=== PATIENT | female | born 1950 | race Asian ===

== ENCOUNTER 2019-05-09 12:08 | Emergency (ER) | payer MEDICARE ==
--- NOTE | 2019-05-09 12:29 | ED Physician Documentation ---
History of Present Illness - Stated complaint Stated Complaint: FEM - Chief complaint Chief Complaint: General - Additonal information Additional information: This is a 68-year-old female who presents with feeling of pressure in her vagin a. She is primarily [place] speaking, history is obtained with use of a video senior biostatistician. Patient also speaks some German. Patient states that she has had some vaginal symptoms for the last 10 years, She feels that there is a balloon or something inside her vagina that causes some discomfort. She describes this as if there is a balloon and there is pressure is at the balloon is falling down and out. She states that she has had OB evaluation in the past which have been either unrevealing or revealed some redness and swelling of the cervix. She has been on antibiotics in the past and this has not provided much relief. She denies abdominal pain, denies pelvic or vaginal pain. She is not sexually active. Review of Systems Constitutional: denies: Fever Nose: denies: Rhinorrhea / runny nose Cardiac: denies: Chest pain / pressure Respiratory: denies: Cough GI: denies: Abdominal Pain : reports: Discharge. denies: Dysuria Musculoskeletal: denies: Extremity pain Neurologic: denies: Generalized weakness PD PAST MEDICAL HISTORY - Past Medical History : Other (urinary tract infection) - Past Surgical History Past Surgical History: No - Allergies Allergies/Adverse Reactions: Allergies Allergy/AdvReac Type Severity Reaction Status Date / Time No Known Drug Allergies Allergy Verified 05/09/19 12:58 - Living Situation Living Arrangement: reports: At home - Social History Does the pt smoke?: No PD ED PE NORMAL - Vitals Vital signs reviewed: Yes - General General: Alert and oriented X 3, No acute distress - HEENT HEENT: PERRL - Neck Neck: Supple, no meningeal sign - Cardiac Cardiac: RRR - Respiratory Respiratory: Clear bilaterally - Abdomen Abdomen: Normal bowel sounds, Soft, Non tender, Non distended - Female Female : Galvanizer Zinc present, Other (External genitalia unremarkable, on speculum exam there is anterior vaginal prolapse/cystocele. Cervix is unremarkable in appearance. No abnoraml discharge.) - Derm Derm: Warm and dry - Extremities Extremities: No deformity - Neuro Neuro: Alert and oriented X 3 - Psych Psych: Normal mood, Normal affect Results - Vitals Vitals: Vital Signs - 24 hr 05/09/19 05/09/19 12:15 15:18 Temperature 36.8 C Heart Rate 85 65 Respiratory 18 18 Rate Blood Pressure 160/122 H 110/74 O2 Saturation 98 98 Oxygen O2 Source Room air - Labs Labs: Laboratory Tests 05/09/19 12:42 Urine Color YELLOW Urine Clarity CLEAR Urine pH 6.0 Ur Specific [place] <=1.005 Urine Protein NEGATIVE Urine Glucose (UA) NEGATIVE Urine Ketones NEGATIVE Urine Occult Blood MODERATE H Urine Nitrite NEGATIVE Urine Bilirubin NEGATIVE Urine Urobilinogen 0.2 (NORMAL) Ur Leukocyte Esterase SMALL H Urine RBC 0-5 Urine WBC 0-3 Ur Squamous Epith Cells FEW Squamous Urine Bacteria Few Ur Microscopic Review INDICATED Urine Culture Comments INDICATED PD MEDICAL DECISION MAKING - ED course Complexity details: considered differential (UTI, BV, cystocele, STD, abscess, PID) ED course: Pt presents with symptoms of heaviness/pressure in her vagina that have been ongoing for years. She is not sexually active, has no itching, or abnormal discharge. Her abdomen is benign with no tenderness, I highly doubt acute abdominal or pelvic pathology. She has anterior wall vaginal prolapse on exam that explains her symptoms well. I discussed that she needs to follow with an OB to discuss treatment and further evaluation of this issue, contact info was provided. Her UA is negative. Return precautions discussed and patient was discharged home. Departure - Departure Disposition: 01 Home, Self Care Clinical Impression: Prolapse of anterior vaginal wall Condition: Good Instructions: Pelvic Organ Prolapse Follow-Up: Castro Cullen MD [Provider Admit Priv/Credential] - Within 1 week Comments: You were seen today for a feeling of pressure in the vagina. You appear to have Pelvic prolapse, which is likely causing your symptoms. Please follow-up with an CHAIN SAW OPERATOR provider for further evaluation. Return to emergency department if you have new or worsening symptoms. Discharge Date/Time: 05/09/19 15:18
[2019-05-09 12:50] LABS: BILIRUBIN,URINE NEGATIVE (NEGATIVE); GLUCOSE, URINE (UA) NEGATIVE (NEGATIVE); KETONES,URINE (UA) NEGATIVE (NEGATIVE); LEUKOCYTE ESTERASE, URINE SMALL (NEGATIVE); NITRITE,URINE NEGATIVE (NEGATIVE); OCCULT BLOOD,URINE MODERATE (NEGATIVE); PROTEIN,URINE NEGATIVE (NEGATIVE); UROBILINOGEN,URINE 0.2 (NORMAL) E.U./dL (NORMAL)
[2019-05-09 13:01] LABS: CLARITY,URINE CLEAR (CLEAR)
[2019-05-09 13:12] LABS: BACTERIA,URINE Few /HPF (None Seen); RBC,URINE 0-5 /HPF (0-5); SQUAMOUS EPITHELIAL CELL,UR FEW Squamous (<= Few)
[2019-05-09 15:19] VITALS: BP 110/74
== END 2019-05-09 15:18 | disposition home or self-care (01) ==
LOC: ED 12:08
DX: N81.10 Cystocele, unspecified (principal)
CPT/HCPCS: 81001; 81003; 87086; 99283; 99284

== ENCOUNTER 2019-06-01 09:54 | Outpatient (CLI) | payer MEDICARE, MEDICAID ==
--- NOTE | 2019-06-02 08:53 | Mammography Report ---
Reason: ROUTINE MAMMO Procedure Date: 06/01/2019 Accession Number: [id number] / [id number] Procedure: MELODY - Screening Mammo w/Boris CPT Code: FULL RESULT: EXAM: Screening Mammo w/Boris DATE: 06/01/2019 10:23 AM CLINICAL HISTORY: Screening encounter. Baseline examination. TECHNIQUE: (B) - Bilateral CC and MLO views were obtained. COMPARISON: None PARENCHYMAL PATTERN: (D) - The breast(s) demonstrate(s) heterogeneously dense fibroglandular parenchyma. FINDINGS: Typically benign vascular calcifications are noted. There are no suspicious masses, calcifications, or areas of distortion. IMPRESSION: Benign findings. BI-RADS category 2. RECOMMENDATION: (ANNUAL) - Recommend routine annual screening mammography. BI-RADS CATEGORY: (2) - Benign Findings. STANDARD QUALIFYING STATEMENTS: 1. This examination was not reviewed with the aid of Computer-Aided Detection (CAD). 2. A negative or benign imaging report should not preclude biopsy if clinically suspicious findings are present. 3. Dense breasts may obscure an underlying neoplasm. 4. This examination was reviewed with the aid of 3D breast imaging (tomosynthesis).
== END 2019-06-01 09:55 | disposition home or self-care (01) ==
LOC: DI 09:54
DX: Z01.419 Encounter for gynecological examination (general) (routine) without abnormal findings (principal); Z12.31 Encounter for screening mammogram for malignant neoplasm of breast
CPT/HCPCS: 77063; 77067

== ENCOUNTER 2019-06-14 11:27 | Outpatient (CLI) | payer MEDICARE, MEDICAID ==
[2019-06-14 12:01] LABS: BASOPHILS # (AUTO) 0.1 10^3/uL (0.0-0.1); BASOPHILS % (AUTO) 0.7 %; EOSINOPHILS # (AUTO) 0.1 10^3/uL (0.0-0.7); EOSINOPHILS % (AUTO) 0.7 %; HGB - HEMOGLOBIN 14.4 g/dL (12.0-16.0); LYMPHOCYTES # (AUTO) 1.8 10^3/uL (1.5-3.5); LYMPHOCYTES % (AUTO) 24.1 %; MEAN CORPUSCULAR HEMOGLOBIN 29.5 pg (27.0-31.0); MEAN CORPUSCULAR HGB CONC 32.7 g/dL (32.0-36.0); MEAN CORPUSCULAR VOLUME 90.4 fL (81.0-99.0); MONOCYTES # (AUTO) 0.4 10^3/uL (0.0-1.0); MONOCYTES % (AUTO) 5.9 %; NEUTROPHILS # (AUTO) 5.1 10^3/uL (1.5-6.6); NEUTROPHILS % (AUTO) 68.3 %; PLT - PLATELET COUNT 281 10^3/uL (130-450); RED BLOOD COUNT 4.88 10^6/uL (4.20-5.40); RED CELL DISTRIBUTION WIDTH 12.5 % (12.0-15.0); WHITE BLOOD COUNT 7.4 x10^3/uL (4.8-10.8)
[2019-06-14 12:30] LABS: BILIRUBIN,TOTAL 0.6 mg/dL (0.2-1.0); CREATININE 0.5 mg/dL (0.4-1.0); TOTAL PROTEIN 8.2 g/dL (6.7-8.2)
== END 2019-06-14 11:28 | disposition home or self-care (01) ==
LOC: LAB 11:27 → RT 11:28
PROVIDERS: ATTEND Obstetrics & Gynecology
DX: Z01.818 Encounter for other preprocedural examination (principal); N81.4 Uterovaginal prolapse, unspecified
CPT/HCPCS: 36415; 80053; 85025; 86850; 86900; 86901; 93005

== ENCOUNTER 2019-06-15 08:26 | Day surgery (SDC) | payer MEDICARE, MEDICAID ==
[~2019-06-15 08:26] MED LIST: KETOROLAC 15 MG/ML VIAL IVP SCH
[2019-06-15] MEDS ORDERED: CEFAZOLIN SODIUM IN 0.9 % NACL 2 GM/100 ML BAG IV ONE (08:45)
[2019-06-15] MEDS ORDERED: LACTATED RINGERS 1,000 ML IV ONE ×3 (09:05→11:53)
[2019-06-15] MEDS ORDERED: METHYLENE BLUE 0.5% 50 MG/10 ML AMPULE ONE (09:07)
[2019-06-15] MEDS ORDERED: BUPIVACAINE 0.5%-EPI 1:200000 PF 10 ML VIAL ONE (09:08)
--- NOTE | 2019-06-15 09:08 | ANESTHESIA ---
Pre-Anesthesia VS, & Labs - Diagnosis Uterine prolapse, cystocele - Procedure Lap assisted vaginal hysterectomy Vital Signs: Temp Pulse Resp BP Pulse Ox 36.1 C L 77 16 161/98 H 97 06/15/19 08:41 06/15/19 08:41 06/15/19 08:41 06/15/19 08:41 06/15/19 08:41 Height 5 ft 1 in Weight (kg) 55 kg Body Mass Index 25.0 - NPO >8 hours - Is Patient ?: Not Applicable - Lab Results Lab results reviewed: Yes Home Medications and Allergies No Known Home Medications 06/14/19 Allergies/Adverse Reactions: Allergies Allergy/AdvReac Type Severity Reaction Status Date / Time No Known Drug Allergies Allergy Verified 05/09/19 12:58 Anes History & Medical History - Anesthetic History Anesthesia Complications: reports: No previous complications Family history of Anesthesia Complications: Denies Family history of Malignant Hyperthermia: Denies - Medical History Cardiovascular: reports: None Pulmonary: reports: None Gastrointestinal: reports: None Urinary: reports: Other Neuro: reports: None Musculoskeletal: reports: None Endocrine/Autoimmune: reports: None Skin: reports: None Smoking Status: Never smoker Psychosocial: reports: No issues indicated Exam General: Alert, Oriented x3, Cooperative Dental: WNL Mouth Opening: Greater than 4 Fingerbreadths Neck Mobility: Normal Mallampati classification: II Thyromental Distance: greater than 6 cm Respiratory: Lungs clear Cardiovascular: Regular rate Mental/Cognitive Status: Alert/Oriented X3, Normal for patient, Other (Language barrier, patient speaks little Gabonese) Cognitive Status: Within normal limits Plan Anesthesia Type: General Consent for Procedure(s) Verified and Reviewed: Yes Code Status: Attempt Resuscitation ASA classification: 2-Mild systemic disease Is this case an emergency?: No
[2019-06-15] MEDS ORDERED: ESTROGENS, CONJUGATED CREAM 30 GM TUBE ONE (10:17)
[2019-06-15] MEDS ORDERED: MIDAZOLAM 2 MG/2 ML VIAL IVP ONE (10:25)
[2019-06-15] MEDS ORDERED: LIDOCAINE-MPF 2% 5 ML VIAL IM ONE (10:25)
[2019-06-15] MEDS ORDERED: hydrALAZINE INJ 20 MG/ML VIAL IVP ONE (10:25)
[2019-06-15] MEDS ORDERED: PROPOFOL 200 MG/20 ML VIAL IVP ONE (10:25)
[2019-06-15] MEDS ORDERED: fentaNYL 100 MCG/2 ML VIAL IVP ONE (10:25)
[2019-06-15] MEDS ORDERED: KETOROLAC 30 MG/ML VIAL IVP ONE (10:25)
[2019-06-15] MEDS ORDERED: ACETAMINOPHEN 1,000 MG/100 ML 100 ML IV ONE (10:25)
[2019-06-15] MEDS ORDERED: DEXAMETHASONE 4 MG/ML VIAL IVP ONE (10:25)
[2019-06-15] MEDS ORDERED: ROCURONIUM 50 MG/5 ML VIAL IVP ONE (10:25)
[2019-06-15] MEDS ORDERED: ePHEDrine 50 MG/ML VIAL IVP ONE (10:25)
[2019-06-15] MEDS ORDERED: ONDANSETRON 4 MG/2 ML VIAL IVP ONE (10:25)
[2019-06-15] MEDS ORDERED: NEOSTIGMINE 1 MG/1 ML 10 ML MDV IVP ONE ×2 (10:25)
[2019-06-15] MEDS ORDERED: GLYCOPYRROLATE 1 MG/5 ML VIAL IVP ONE (10:25)
[2019-06-15] MEDS ORDERED: oxyCODONE 5 MG TABLET PO PRN (14:23)
[2019-06-15] MEDS ORDERED: ONDANSETRON 4 MG/2 ML VIAL IVP PRN (14:23)
--- NOTE | 2019-06-15 14:28 | OPERATIVE REPORT ---
Operative Report - General Procedure Date: 06/15/19 Planned Procedure: LAVH with BSO A&P Cysto Pre-Op Diagnosis: Uterine prolaps, cystocele grade III rectocele Procedure Performed: Same Post Op Diagnosis: Same - Procedure Note Primary Surgeon: Castro Cullen MD Secondary Surgeon: Felix Stephens DO Anesthesia Provider: Amado Gramajo CRNA Anesthesia Technique: General ET tube Pathology: Uterus with both tube and ovaries IV Fluids (mL): 1,200 Estimated Blood Loss (mL): 75 Urine Output (mL): 400 Findings: uterus which prolapsed to the vaginal opening. Large grade III cystocele moderate rectocele
[2019-06-15] MEDS ORDERED: KETOROLAC 30 MG/ML VIAL IVP SCH (15:00)
[2019-06-15] MEDS: ACETAMINOPHEN 500 MG TABLET PO SCH ×2 (16:00→19:51)
[2019-06-15] MEDS: LACTATED RINGERS 1,000 ML IV SCH (16:00)
[2019-06-15] MEDS: SIMETHICONE CHEW 80 MG TABLET PO SCH (17:16)
--- NOTE | 2019-06-15 19:12 | OPERATIVE REPORT ---
DATE OF SERVICE: 06/15/2019 Physician: Castro Cullen MD PREOPERATIVE DIAGNOSIS: Uterine prolapse, grade 3 cystocele, moderate rectocele. POSTOPERATIVE DIAGNOSIS: Uterine prolapse, grade 3 cystocele, moderate rectocele. PROCEDURE: Laparoscopically-assisted vaginal hysterectomy with bilateral salpingo-oophorectomy and anterior posterior repair, followed by cystoscopy. SURGEON: Dr. Castro Cullen. CHRONIC CONDITION NURSE: Felix Ford MD. ANESTHESIA: General via endotracheal tube with Amado Gramajo CRNA. ESTIMATED BLOOD LOSS: 75 mL IV FLUIDS: 1200 mL URINE OUTPUT: 400 mL FINDINGS: Upon entering the abdominal cavity, uterus was noted to be atrophic. The tubes and ovaries were without disease or adhesions around the left ovary and tube. There was also some pericecal adhesions on the right hand side; however, the appendix appeared to be normal. Vaginally, there was evidence of a large grade 3 cystocele. There was also evidence of a moderate rectocele. PROCEDURE: Following adequate endotracheal anesthesia, patient was placed in dorsal lithotomy position. Pelvic examination under anesthesia was performed, which confirmed the uterine prolapse as well as the large cystocele and mild rectocele. She was then prepped and draped in the usual fashion. A timeout was performed, in which concerns were identified. At this point, a speculum was placed in the vagina. The cervix was visualized. It was dilated up to 8 mm, and then a HUMI uterine manipulator was placed. Large Animal Husbandry Technician's gloves were changed and then following local anesthesia with 0.25% Marcaine with epinephrine, a stab wound was made in the subumbilical area with a #11 blade. A 5 mm trocar and sheath were placed atraumatically, and the abdomen was insufflated. There was no evidence of any injury to the bowel at the site of insertion. Left and right lower quadrant ports were then placed under direct visualization following skin incision and local anesthesia with 0.25% Marcaine with epi. At this point, the pelvis was inspected with the aforementioned findings. There was adhesion on the right cecal area as well as some small adhesions to the left colon near the fallopian tube. The right fallopian tube was grasped with forceps, and then the infundibulopelvic ligament was triply cauterized and transected. Then, the mesosalpinx and mesovarium were cauterized and transected utilizing the LigaSure. This was carried across the round ligament, and then the anterior leaf of the broad ligament was opened and carried across the lower uterine segment with transection occurring with the LigaSure. The uterine vessels on the right hand side were identified, cauterized, and transected. Prior to this, the ureters on both sides were identified and noted to be falling out of the operative field. The left ovary appeared to be somewhat adhered to the posterior leaf of the broad ligament. The LigaSure was used to cauterize and transect the mesosalpinx and then the round ligament. Care was taken to doubly cauterize to decrease the risk of postop bleeding. This was carried all the way down to the uterus. The anterior leaf was opened, cauterized, and transected with the LigaSure. This side was done by Dr. Ford. The ureter was identified on the left side, and then the uterine vessels were cauterized and transected. The uterus blanched well at this time. The bladder was dissected off the lower uterine segment. At this point, the ovary on the left hand side, which had been left secondary to approximate the proximity of the bowel, was then dissected free, and then the infundibulopelvic ligament was doubly cauterized and transected. The ovary was then brought out in multiple pieces through the right lower quadrant incision. At this point, the pelvis was inspected; no bleeding was noted. The transection was then changed to the pelvis, and then a thyroid Abelardo clamp was used to clamp the cervix after removing the HUMI. Electrocautery was used to circumscribe the cervix, and then the bladder and rectum were pushed free from the lower uterine segment. The transverse cervical ligaments were clamped, transected, and ligated with Chasity stitches of #0 Vicryl. This was carried up in the uterus around the level of the uterosacral ligaments. At this point, the posterior peritoneum was entered, and a long-billed speculum was placed. The bladder flap was then developed and entered anteriorly, and a [place] was placed. The remaining transverse attachments of the uterus were then clamped, divided, and ligated with Chasity stitches. The uterus was then extirpated, and then its pedicles were all inspected for bleeding; none was noted. At this point, a Olson suture was placed, but not tied down. The uterosacral ligaments were injected with 0.25% Marcaine with epinephrine, 10 mL in each ligament, and then a pursestring of 4-0 Monocryl was placed to close the peritoneal cavity. The apex of the vagina was then closed laterally with two jjdpie-dd-fmozty of 0 Vicryl and then these included the transverse cervical ligaments. At this point, the upper margin of the cystocele was identified, and an Allis clamp was placed at the midline. Metzenbaum scissors were then utilized to dissect and divide the anterior vaginal mucosa. The edges were grasped with thyroid Abelardo clamps, and then the bladder and the vesicovaginal fascia was pushed free from the vaginal mucosa. Plication sutures of 0 Vicryl were then placed to plicate the vesicovaginal fascia. Following this, the excess vaginal mucosa was trimmed free, and then this was closed utilizing fstaee-lg-xdqtnq of 2-0 Vicryl. At this point, the apex of the vagina was closed utilizing 2-0 Vicryl [id number]. The Olson suture was then pulled snug and pulled the vagina up into the vaginal vault. It was decided after observation to proceed on the posterior repair. A triangular portion of the perineum was excised, utilizing a #15 blade, and then Metzenbaum scissors were used to tunnel underneath the posterior vaginal mucosa, dividing it from the vaginal rectal fascia. At this point, Plicating sutures of 0 Vicryl were then placed to bring back the rectovaginal fascia, and a good flow was developed and at this point. This was carried all the way out to the perineum. The excess vaginal mucosa was then trimmed free, and then the vaginal mucosa was closed utilizing qogxdf-wz-jhdlsw of 2-0 Vicryl. A laparoscope was then reintroduced into the ports and it was noted that there was no bleeding or excessive blood in the pelvic cavity. At this point, a cystoscopy was performed and there was evidence of good flow from both ureteral orifices. The instruments were then removed from the abdominal wall, and the incisions were closed utilizing 4-0 Monocryl subcuticular. Patient tolerated the procedure well and was taken into recovery in stable condition. Sponge and needle counts were correct. TD: 06/15/2019 14:44 MELISSA
[2019-06-15] MEDS: DOCUSATE SODIUM 100 MG CAPSULE PO SCH (19:51)
[2019-06-16] MEDS: LACTATED RINGERS 1,000 ML IV SCH (00:24)
[2019-06-16] MEDS: KETOROLAC 15 MG/ML VIAL IVP SCH ×2 (00:25→06:05)
[2019-06-16] MEDS: ACETAMINOPHEN 500 MG TABLET PO SCH (06:05)
[2019-06-16 06:37] LABS: BASOPHILS % (AUTO) 0.3 %; EOSINOPHILS % (AUTO) 0.1 %; HGB - HEMOGLOBIN 11.3 g/dL (12.0-16.0); LYMPHOCYTES # (AUTO) 2.8 10^3/uL (1.5-3.5); LYMPHOCYTES % (AUTO) 20.8 %; MEAN CORPUSCULAR HGB CONC 31.7 g/dL (32.0-36.0); MEAN CORPUSCULAR VOLUME 91.3 fL (81.0-99.0); MEAN PLATELET VOLUME 8.9 fL (7.9-10.8); MONOCYTES # (AUTO) 0.9 10^3/uL (0.0-1.0); NEUTROPHILS # (AUTO) 9.6 10^3/uL (1.5-6.6); NEUTROPHILS % (AUTO) 71.4 %; PLT - PLATELET COUNT 232 10^3/uL (130-450); WHITE BLOOD COUNT 13.4 x10^3/uL (4.8-10.8)
[2019-06-16 07:59] VITALS: BP 115/62
--- NOTE | 2019-06-16 08:56 | PROVIDER PROGRESS NOTE ---
Subjective - General Procedure Date: 06/15/19 Post Op Days: 1 Procedure Performed: LAVH, BSO, A&P, cysto - Review of Systems Wound/Incisions: positive: Healing well General: positive: No symptoms. negative: Fever (Pain minimal.) Objective - Patient Data Reviewed Vital Signs: Yes Vital Signs: Vital Signs x48h Temp Pulse Resp BP Pulse Ox 06/16/19 07:57 37.0 C 60 16 115/62 98 06/16/19 04:00 36.4 C L 98 18 126/65 99 Weight: Weight 06/14/19 06/15/19 06/16/19 23:59 23:59 23:59 Weight (kg) 55 kg Intake & Output: Intake and Output Totals x24h 06/14/19 06/15/19 06/16/19 23:59 23:59 23:59 Intake Total 2400 1320 Output Total 1675 745 Balance 725 575 - Lab Results Lab Results: 06/16/19 06:32 Other Lab Results: Lab Results x24hrs 06/16/19 Range/Units 06:32 WBC 13.4 H (4.8-10.8) x10^3/uL RBC 3.90 L (4.20-5.40) 10^6/uL Hgb 11.3 L (12.0-16.0) g/dL Hct 35.6 L (37.0-47.0) % MCV 91.3 (81.0-99.0) fL MCH 29.0 (27.0-31.0) pg MCHC 31.7 L (32.0-36.0) g/dL RDW 13.0 (12.0-15.0) % Plt Count 232 (130-450) 10^3/uL MPV 8.9 (7.9-10.8) fL Neut # (Auto) 9.6 H (1.5-6.6) 10^3/uL Lymph # (Auto) 2.8 (1.5-3.5) 10^3/uL [place] # (Auto) 0.9 (0.0-1.0) 10^3/uL Eos # (Auto) 0.0 (0.0-0.7) 10^3/uL Baso # (Auto) 0.0 (0.0-0.1) 10^3/uL Absolute Nucleated RBC 0.00 x10^3/uL Nucleated RBC % 0.0 /100WBC - Current Medications Current Medications: Current Medications Generic Name Dose Route Start Last Admin Trade Name Piper PRN Reason Stop Dose Admin Acetaminophen 1,000 mg 06/15/19 15:00 06/16/19 06:05 Tylenol PO Not Given Q8H AUBREY Docusate Sodium 100 mg 06/15/19 21:00 06/15/19 19:51 Colace 100mg Capsule PO Not Given BID AUBREY Lactated Ringer's 1,000 mls @ 100 mls/hr 06/15/19 15:00 06/16/19 00:24 Lr IV 100 mls/hr .Q10H AUBREY Administration Ketorolac Tromethamine 15 mg 06/16/19 00:00 06/16/19 06:05 Toradol Inj (15mg) IVP 06/21/19 00:00 Not Given Q6HR AUBREY Simethicone 80 mg 06/15/19 18:00 06/15/19 17:16 Mylicon PO Not Given 0900,1300,1800 [facility] - Physical Exam Wound/Incisions: positive: Healing well, Dressing dry and intact, No drainage General Appearance: positive: No acute distress, Alert Respiratory: positive: Chest non-tender, No respiratory distress, Breath sounds nml Cardiovascular: positive: Regular rate & rhythm, No murmur, No gallop Abdomen: positive: Non-tender, No organomegaly, Nml bowel sounds, No distention Back: negative: CVA tenderness (R), CVA tenderness (L) Extremities: negative: Calf tenderness, Flora's sign/cords Impression/Plan - Problem List Problem List: POD #I Excellent progress. Vag pack out. Remove gillis may go home after voiding. Discharge meds at ;home Oxy codone 5 mg motrin Colace
--- NOTE | 2019-06-16 08:57 | Discharge Plan ---
Discharge Plan Problem Reviewed?: Yes Disposition: Home, Self Care Condition: Good Diet: Regular Shower Restrictions: No Driving Restrictions: Yes (not while taking narcotics) Weight Bearing: Full Weight No Smoking: If you smoke, Please STOP! Call for help.
[2019-06-16] MEDS: DOCUSATE SODIUM 100 MG CAPSULE PO SCH (09:25)
[2019-06-16] MEDS: SIMETHICONE CHEW 80 MG TABLET PO SCH (09:25)
== END 2019-06-16 11:08 | disposition home or self-care (01) ==
LOC: SDS 08:26 → MS2 15:56 → SDS 06-16 11:08
PROVIDERS: ATTEND Obstetrics & Gynecology
PROC: 0JQC0ZZ Repair Pelvic Region Subcutaneous Tissue and Fascia, Open Approach (ICD-10-PCS; 2019-06-15)
PROC: 0JQC0ZZ Repair Pelvic Region Subcutaneous Tissue and Fascia, Open Approach (ICD-10-PCS; 2019-06-15)
PROC: 0UT9FZZ Resection of Uterus, Via Natural or Artificial Opening With Percutaneous Endoscopic Assistance (ICD-10-PCS; principal; 2019-06-15 09:45)
PROC: 0UT2FZZ Resection of Bilateral Ovaries, Via Natural or Artificial Opening With Percutaneous Endoscopic Assistance (ICD-10-PCS; 2019-06-15 09:45)
PROC: 0UT7FZZ Resection of Bilateral Fallopian Tubes, Via Natural or Artificial Opening With Percutaneous Endoscopic Assistance (ICD-10-PCS; 2019-06-15 09:45)
DX: N81.3 Complete uterovaginal prolapse (principal); N80.0 Endometriosis of uterus; D25.1 Intramural leiomyoma of uterus; N87.9 Dysplasia of cervix uteri, unspecified; N88.8 Other specified noninflammatory disorders of cervix uteri; Z78.0 Asymptomatic menopausal state
CPT/HCPCS: 36415; 57260; 58552; 85025; A9270; J0131; J0690; J7120

== ENCOUNTER 2019-08-30 16:14 | Emergency (ER) | payer MEDICARE, MEDICAID ==
--- NOTE | 2019-08-30 17:49 | XRAY Report ---
Reason: HEART FLUTTERING Procedure Date: 08/30/2019 Accession Number: [id number] / [id number] Procedure: XR - Chest 2 View X-Ray CPT Code: 63702 Final Report FULL RESULT: EXAM: CHEST RADIOGRAPHY EXAM DATE: 08/30/2019 05:15 PM. CLINICAL HISTORY: HEART FLUTTERING. COMPARISON: None. TECHNIQUE: 2 views. FINDINGS: Lungs/Pleura: No focal airspace opacity. No pleural effusion or pneumothorax. Mediastinum: Atherosclerotic calcification of the aortic arch demonstrated. There is tortuosity of the descending thoracic aorta. Cardiomediastinal silhouette is overall within normal limits. Pulmonary vasculature is unremarkable. Other: There is old-appearing anterior compression deformity of the T11 vertebral body. Multilevel degenerative changes are present in the thoracic spine. IMPRESSION: No acute cardiopulmonary abnormality. RADIA
[2019-08-30 18:21] LABS: BASOPHILS # (AUTO) 0.1 10^3/uL (0.0-0.1); BASOPHILS % (AUTO) 0.7 %; EOSINOPHILS # (AUTO) 0.1 10^3/uL (0.0-0.7); EOSINOPHILS % (AUTO) 0.9 %; HGB - HEMOGLOBIN 13.1 g/dL (12.0-16.0); LYMPHOCYTES # (AUTO) 1.8 10^3/uL (1.5-3.5); LYMPHOCYTES % (AUTO) 26.9 %; MEAN CORPUSCULAR HEMOGLOBIN 30.3 pg (27.0-31.0); MEAN CORPUSCULAR HGB CONC 31.7 g/dL (32.0-36.0); MEAN CORPUSCULAR VOLUME 95.4 fL (81.0-99.0); MONOCYTES # (AUTO) 0.7 10^3/uL (0.0-1.0); MONOCYTES % (AUTO) 10.6 %; NEUTROPHILS # (AUTO) 4.1 10^3/uL (1.5-6.6); NEUTROPHILS % (AUTO) 60.8 %; PLT - PLATELET COUNT 271 10^3/uL (130-450); RED BLOOD COUNT 4.33 10^6/uL (4.20-5.40); RED CELL DISTRIBUTION WIDTH 12.9 % (12.0-15.0); WHITE BLOOD COUNT 6.7 x10^3/uL (4.8-10.8)
--- NOTE | 2019-08-30 18:31 | ED Physician Documentation ---
PD HPI CHEST PAIN - Stated complaint Stated Complaint: IRREGULAR HB - Chief complaint Chief Complaint: Cardiac - History obtained from History obtained from: Patient (68-year-old woman presents with subacute to chronic complaints of nervousness. She states that she recently moved up from [place] where she Lived near her daughter. She was doing well then because whenever she got nervous she could go over to her daughter's house. She came up here because her grandson is in the [place]. Unfortunately she is in an apartment where the neighbors are quite loud and that makes her jittery and feel anxious. On top of that her grandson is about to be deployed to [place] so she will be alone here for 6 months. She is not sleeping well and the neighbors are keeping her up. She like to switch apartments but states she is still a few spots in line from where she can switch to another apartment.) Review of Systems Constitutional: denies: Fever, Chills Cardiac: denies: Chest pain / pressure, Pedal edema, Calf pain Respiratory: denies: Dyspnea PD PAST MEDICAL HISTORY - Past Medical History Neuro: None : Other - Past Surgical History Past Surgical History: No - Present Medications Home Medications: Ambulatory Orders Medication Instructions Recorded Confirmed LORazepam [Ativan] 0.5 mg PO Q6H PRN #15 tablet 08/30/19 - Allergies Allergies/Adverse Reactions: Allergies Allergy/AdvReac Type Severity Reaction Status Date / Time No Known Drug Allergies Allergy Verified 08/30/19 16:36 - Social History Does the pt smoke?: No Smoking Status: Never smoker Does the pt drink ETOH?: No Does the pt have substance abuse?: No PD ED PE NORMAL - Vitals Vital signs reviewed: Yes - General General: Alert and oriented X 3, No acute distress, Other (On the monitor she becomes tachycardic when talking about stressful things, but then her heart rate will drift down to 80 or so) - HEENT HEENT: PERRL, EOMI - Neck Neck: Supple, no meningeal sign, No bony TTP - Cardiac Cardiac: RRR, No murmur - Respiratory Respiratory: No respiratory distress, Clear bilaterally - Abdomen Abdomen: Non tender - Neuro Neuro: Alert and oriented X 3, commercial escrow assistant 2-12 intact, No motor deficit, No sensory deficit, Normal speech Results - Vitals Vitals: Vital Signs - 24 hr 08/30/19 08/30/19 08/30/19 16:36 17:29 18:04 Temperature 36.9 C Heart Rate 107 H 88 82 Respiratory 16 18 18 Rate Blood Pressure 161/94 H 153/103 H 161/89 H O2 Saturation 98 99 99 Oxygen O2 Source Room air - EKG (time done) 1650 Rate: Rate (enter#) (98) Rhythm: NSR [place]: Normal Intervals: Normal OK QRS: Normal Ischemia: Normal ST segments - Labs Labs: Laboratory Tests 08/30/19 18:14 WBC 6.7 RBC 4.33 Hgb 13.1 Hct 41.3 MCV 95.4 MCH 30.3 MCHC 31.7 L RDW 12.9 Plt Count 271 MPV 9.0 Neut # (Auto) 4.1 Lymph # (Auto) 1.8 [place] # (Auto) 0.7 Eos # (Auto) 0.1 Baso # (Auto) 0.1 Absolute Nucleated RBC 0.02 Nucleated RBC % 0.3 PD MEDICAL DECISION MAKING - ED course ED course: This is a 68-year-old woman who presents with complaints that are consistent with anxiety may be some depression. I recommend following up with a counselor and potentially starting some propranolol, that said she did not want to take something scheduled so propranolol would be less helpful and she wanted an occasional as needed for which she was given a few Ativan. Recommended that she needed to follow-up with the therapist. Departure - Departure Disposition: 01 Home, Self Care Clinical Impression: Anxiety Condition: Good Record reviewed to determine appropriate education?: Yes Instructions: ED Panic Attack Prescriptions: LORazepam [Ativan] 0.5 mg PO Q6H PRN #15 tablet PRN Reason: Anxiety Comments: As discussed, I recommend you follow-up with a therapist. One option would be [facility] in [place] [facility]. The phone number is [phone]. Also follow-up with your primary care physician.
[2019-08-30 18:36] LABS: ALBUMIN 3.6 g/dL (3.2-5.5); ALBUMIN/GLOBULIN RATIO 0.9 (1.0-2.2); BILIRUBIN,TOTAL 0.3 mg/dL (0.2-1.0); CALCIUM 8.7 mg/dL (8.5-10.3); CREATININE 0.5 mg/dL (0.4-1.0); TOTAL PROTEIN 7.5 g/dL (6.7-8.2)
[2019-08-30 18:43] VITALS: BP 156/92
== END 2019-08-30 18:43 | disposition home or self-care (01) ==
LOC: ED 16:14
DX: F41.9 Anxiety disorder, unspecified (principal); R00.0 Tachycardia, unspecified
CPT/HCPCS: 36415; 71046; 80053; 83690; 84484; 85025; 93005; 99283; 99284

== ENCOUNTER 2019-10-11 13:18 | Outpatient (CLI) | payer MEDICARE, MEDICAID ==
[2019-10-11 12:59] LABS: BASOPHILS % (AUTO) 0.6 %; EOSINOPHILS # (AUTO) 0.2 10^3/uL (0.0-0.7); EOSINOPHILS % (AUTO) 2.5 %; HGB - HEMOGLOBIN 13.3 g/dL (12.0-16.0); LYMPHOCYTES # (AUTO) 2.1 10^3/uL (1.5-3.5); LYMPHOCYTES % (AUTO) 33.1 %; MEAN CORPUSCULAR HEMOGLOBIN 29.9 pg (27.0-31.0); MEAN CORPUSCULAR VOLUME 93.5 fL (81.0-99.0); MEAN PLATELET VOLUME 9.9 fL (7.9-10.8); MONOCYTES # (AUTO) 0.4 10^3/uL (0.0-1.0); MONOCYTES % (AUTO) 6.2 %; NEUTROPHILS # (AUTO) 3.6 10^3/uL (1.5-6.6); NEUTROPHILS % (AUTO) 57.4 %; PLT - PLATELET COUNT 316 10^3/uL (130-450); RED BLOOD COUNT 4.45 10^6/uL (4.20-5.40); RED CELL DISTRIBUTION WIDTH 12.4 % (12.0-15.0); WHITE BLOOD COUNT 6.3 x10^3/uL (4.8-10.8)
[2019-10-11 13:10] LABS: ALBUMIN 3.7 g/dL (3.2-5.5); ALBUMIN/GLOBULIN RATIO 0.9 (1.0-2.2); ALKALINE PHOSPHATASE 73 IU/L (42-121); ALT ALANINE AMINOTRANSFERASE 22 IU/L (10-60); AST ASPARTATE AMINOTRANSFERASE 24 IU/L (10-42); BILIRUBIN,TOTAL 0.9 mg/dL (0.2-1.0); BUN - BLOOD UREA NITROGEN 12 mg/dL (6-20); CARBON DIOXIDE - CO2 28 mmol/L (21-32); CHLORIDE 102 mmol/L (101-111); CHOL/HDL RATIO 5.7 (<4.4); CHOLESTEROL 250 mg/dL; CREATININE 0.6 mg/dL (0.4-1.0); GFR - MDRD 99 (>89); GLUCOSE 95 mg/dL (70-100); HDL CHOLESTEROL 44 mg/dL; LDL CHOLESTEROL,CALCULATED 173 mg/dL; LDL/HDL RATIO 3.9 (<4.4); SODIUM 138 mmol/L (135-145); TOTAL PROTEIN 7.6 g/dL (6.7-8.2); VLDL CHOLESTEROL 33 mg/dL
== END 2019-10-11 23:59 | disposition home or self-care (01) ==
LOC: LAB.WCP 13:18
PROVIDERS: ATTEND Family Medicine
DX: I10 Essential (primary) hypertension (principal); R00.0 Tachycardia, unspecified
CPT/HCPCS: 36415; 80053; 80061; 83721; 84443; 85025

== ENCOUNTER 2020-03-28 14:48 | Outpatient (CLI) | payer MEDICARE, MEDICAID ==
[2020-03-28 18:46] LABS: BASOPHILS % (AUTO) 0.7 %; EOSINOPHILS # (AUTO) 0.1 10^3/uL (0.0-0.7); EOSINOPHILS % (AUTO) 1.1 %; HGB - HEMOGLOBIN 12.8 g/dL (12.0-16.0); LYMPHOCYTES # (AUTO) 1.7 10^3/uL (1.5-3.5); LYMPHOCYTES % (AUTO) 28.4 %; MEAN CORPUSCULAR VOLUME 93.7 fL (81.0-99.0); MEAN PLATELET VOLUME 9.6 fL (7.9-10.8); MONOCYTES # (AUTO) 0.6 10^3/uL (0.0-1.0); NEUTROPHILS # (AUTO) 3.7 10^3/uL (1.5-6.6); NEUTROPHILS % (AUTO) 60.6 %; PLT - PLATELET COUNT 271 10^3/uL (130-450); RED BLOOD COUNT 4.27 10^6/uL (4.20-5.40); RED CELL DISTRIBUTION WIDTH 12.4 % (12.0-15.0); WHITE BLOOD COUNT 6.1 x10^3/uL (4.8-10.8)
[2020-03-28 19:05] LABS: ALBUMIN 3.6 g/dL (3.2-5.5); BILIRUBIN,TOTAL 0.7 mg/dL (0.2-1.0); CALCIUM 8.7 mg/dL (8.5-10.3); CREATININE 0.5 mg/dL (0.4-1.0); TOTAL PROTEIN 7.3 g/dL (6.7-8.2)
== END 2020-03-28 23:59 | disposition home or self-care (01) ==
LOC: LAB.WCP 14:48
PROVIDERS: ATTEND Nurse Practitioner Family
DX: R53.83 Other fatigue (principal)
CPT/HCPCS: 36415; 80053; 85025

== ENCOUNTER 2020-05-30 19:22 | Emergency (ER) | payer MEDICARE, MEDICAID ==
[2020-05-30 20:04] VITALS: BP 164/109
--- NOTE | 2020-05-30 22:05 | ED Physician Documentation ---
History of Present Illness - Stated complaint Stated Complaint: CONFUSION - Chief complaint Chief Complaint: General - History obtained from History obtained from: Patient - Additonal information Additional information: Patient is a 69-year-old female who presents to the emergency department requesting a physical exam. The patient reports she is scheduled to move to [place] with her daughter but reports that her daughter wanted her to be seen by physician before she relocated to [place]. The patient does admit to having some stress but denies any depression or suicidal thoughts or homicidal thoughts denies any auditory visual hallucinations she denies any chest pain any shortness of breath any lower extremity swelling denies any fevers, headache or neck pain. Review of Systems Ten Systems: 10 systems reviewed and negative Constitutional: reports: Reviewed and negative Eyes: reports: Reviewed and negative Ears: reports: Reviewed and negative Nose: reports: Reviewed and negative Throat: reports: Reviewed and negative Cardiac: reports: Reviewed and negative Respiratory: reports: Reviewed and negative GI: reports: Reviewed and negative : reports: Reviewed and negative Skin: reports: Reviewed and negative Musculoskeletal: reports: Reviewed and negative Neurologic: reports: Reviewed and negative Psychiatric: reports: Reviewed and negative Endocrine: reports: Reviewed and negative Immunocompromised: reports: Reviewed and negative PD PAST MEDICAL HISTORY - Past Medical History Past Medical History: Yes Neuro: None : Other - Past Surgical History Past Surgical History: No - Present Medications Home Medications: Ambulatory Orders Medication Instructions Recorded Confirmed LORazepam [Ativan] 0.5 mg PO Q6H PRN #15 tablet 08/30/19 - Allergies Allergies/Adverse Reactions: Allergies Allergy/AdvReac Type Severity Reaction Status Date / Time No Known Drug Allergies Allergy Verified 08/30/19 16:36 - Social History Does the pt smoke?: No Smoking Status: Never smoker Does the pt drink ETOH?: No Does the pt have substance abuse?: No - POLST Patient has POLST: No PD ED PE NORMAL - Vitals Vital signs reviewed: Yes - General General: Alert and oriented X 3, No acute distress, Well developed/nourished - HEENT HEENT: Atraumatic, PERRL, EOMI, Ears normal, Moist mucous membranes, Pharynx benign - Neck Neck: Supple, no meningeal sign, No bony TTP, No adenopathy, Thyroid normal, No JVD, No bruit - Cardiac Cardiac: RRR, No murmur, No gallop, No rub, Strong equal pulses - Respiratory Respiratory: No respiratory distress, Clear bilaterally - Abdomen Abdomen: Normal bowel sounds, Soft, Non tender, Non distended, No organomegaly - Female Female : Pt declined - Rectal Rectal: Pt declined - Back Back: No CVA TTP, No spinal TTP - Derm Derm: Normal color, Warm and dry, No rash - Extremities Extremities: No deformity, No tenderness to palpate, Normal ROM s pain, No edema, No calf tenderness / cord - Neuro Neuro: Alert and oriented X 3, 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, No motor deficit, No sensory deficit, Normal speech - Psych Psych: Normal mood, Normal affect Results - Vitals Vitals: Vital Signs - 24 hr 05/30/20 19:56 Temperature 37.2 C Heart Rate 103 H Respiratory 16 Rate Blood Pressure 164/109 H O2 Saturation 99 Oxygen O2 Source Room air PD MEDICAL DECISION MAKING - ED course Complexity details: considered differential (Stress, adjustment disorder), d/w patient Departure - Departure Disposition: 01 Home, Self Care Clinical Impression: Stress and adjustment reaction Condition: Stable Instructions: ED Adjustment Disorder Follow-Up: Castro Cullen MD [Primary Care Provider] - Juan Lazo MD [Provider Admit Priv/Credential] - Tomorrow Comments: Please call your primary care provider tomorrow to schedule follow-up appointme nt.
== END 2020-05-30 22:19 | disposition home or self-care (01) ==
LOC: ED 19:22
DX: F43.9 Reaction to severe stress, unspecified (principal); F43.20 Adjustment disorder, unspecified
CPT/HCPCS: 99281; 99283

== ENCOUNTER 2020-06-04 16:18 | Outpatient (CLI) | payer MEDICARE, MEDICAID | END 2020-06-04 16:19 | disposition EMS.NT | LOC: EMS 16:18 | PROVIDERS: ATTEND Surgery | DX: R44.9 Unspecified symptoms and signs involving general sensations and perceptions (principal) ==

== ENCOUNTER 2020-06-07 18:30 | Emergency (ER) | payer MEDICARE, MEDICAID ==
[2020-06-07 18:50] VITALS: BP 135/88
--- NOTE | 2020-06-07 19:13 | ED Physician Documentation ---
History of Present Illness - Stated complaint Stated Complaint: MED CHECK - Chief complaint Chief Complaint: General - History obtained from History obtained from: Patient - History of Present Illness Timing: Today Pain level max: 0 Pain level now: 0 - Additonal information Additional information: discharged from this ED several hours ago for anxiety and strange behavior; telepsych consult recommended seroquel BID, which patient seemed to reluctantly accept. she returns to ED at this time; she says she filled the rx and took the morning dose, but felt some vague symptoms which she has difficulty describing to me, mostly drowsy and difficulty focusinf/concentrating. she is afraid to take any more doses and presents to ED for advice regarding benefits of taking seroquel vs side effects of this medication Review of Systems Constitutional: reports: Reviewed and negative Cardiac: reports: Reviewed and negative Respiratory: reports: Reviewed and negative GI: reports: Reviewed and negative Neurologic: reports: Reviewed and negative PD PAST MEDICAL HISTORY - Past Medical History Neuro: None : Other - Past Surgical History Past Surgical History: No - Present Medications Home Medications: Ambulatory Orders Medication Instructions Recorded Confirmed LORazepam [Ativan] 0.5 mg PO Q6H PRN #15 tablet 08/30/19 QUEtiapine [SEROquel] 25 mg PO BID #60 tablet 06/06/20 - Allergies Allergies/Adverse Reactions: Allergies Allergy/AdvReac Type Severity Reaction Status Date / Time No Known Drug Allergies Allergy Verified 06/07/20 18:51 - Social History Does the pt smoke?: No Smoking Status: Never smoker Does the pt drink ETOH?: No Does the pt have substance abuse?: No - POLST Patient has POLST: No PD ED PE NORMAL - Vitals Vital signs reviewed: Yes - General General: Alert and oriented X 3, No acute distress, Well developed/nourished, Other (tangential during conversation, frequently needs to be redirected towards questions being asked) - HEENT HEENT: PERRL, EOMI, Moist mucous membranes - Neck Neck: Supple, no meningeal sign - Cardiac Cardiac: RRR, No murmur - Respiratory Respiratory: No respiratory distress, Clear bilaterally - Abdomen Abdomen: Soft, Non tender - Neuro Neuro: Alert and oriented X 3, 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 I advised her to take the medication as prescribed unless she develops side effects, no matter what they are, that she feels she cannot tolerate. I explained that some of the tolerable side effects will subside after several days of taking the medication, but that if she feel the side effects are intolerable, she can stop taking the medication. I advised he to follow up with her PMD in any event and as soon as possible.I advised her to consider contacting her pharmacy or her PMD for questions about her medication rather than come to the emergency department for advice on these non-emergent issues. Departure - Departure Disposition: 01 Home, Self Care Clinical Impression: Anxiety, Psychiatric symptoms Condition: Good Instructions: ED Stress React Comments: Follow up with your primary care provider. If you do not have a doctor, you can contact your insurance provider to request referral to a primary care provider. Discharge Date/Time: 06/07/20 19:41
== END 2020-06-07 19:41 | disposition home or self-care (01) ==
LOC: ED 18:30
DX: F41.9 Anxiety disorder, unspecified (principal)
CPT/HCPCS: 99281; 99284

== ENCOUNTER 2020-06-15 11:36 | Emergency (ER) | payer MEDICARE, MEDICAID ==
--- NOTE | 2020-06-15 13:32 | ED Physician Documentation ---
History of Present Illness - Stated complaint Stated Complaint: RIB PAIN - Chief complaint Chief Complaint: General - History obtained from History obtained from: Patient - History of Present Illness Timing: How many days ago (5) - Additonal information Additional information: 69 y/o schizophrenic female with a chief complaint of pain to the ribs on the left side. She has 1 specific area that is very tender. She has not noticed any rash to the area. She is uncertain where or why this is occurred. She is not having cough or fever. Review of Systems Constitutional: denies: Fever Eyes: denies: Decreased vision Ears: denies: Ear pain Nose: denies: Rhinorrhea / runny nose, Congestion Throat: denies: Sore throat Cardiac: reports: Chest pain / pressure. denies: Palpitations, Pedal edema, C jail pain Respiratory: denies: Dyspnea, Cough, Wheezing GI: denies: Abdominal Pain, Nausea, Vomiting, Diarrhea : denies: Dysuria PD PAST MEDICAL HISTORY - Past Medical History Neuro: None : Other - Past Surgical History Past Surgical History: No - Present Medications Home Medications: Ambulatory Orders Medication Instructions Recorded Confirmed LORazepam [Ativan] 0.5 mg PO Q6H PRN #15 tablet 08/30/19 QUEtiapine [SEROquel] 25 mg PO BID #60 tablet 06/06/20 - Allergies Allergies/Adverse Reactions: Allergies Allergy/AdvReac Type Severity Reaction Status Date / Time No Known Drug Allergies Allergy Verified 06/15/20 12:04 - Social History Does the pt smoke?: No Smoking Status: Never smoker Does the pt drink ETOH?: No Does the pt have substance abuse?: No - Immunizations Immunizations are current?: Yes - POLST Patient has POLST: No PD ED PE NORMAL - Vitals Vital signs reviewed: Yes (hypertensive) - General General: Alert and oriented X 3, No acute distress, Well developed/nourished - HEENT HEENT: Atraumatic, PERRL, EOMI - Neck Neck: Supple, no meningeal sign, No bony TTP - Cardiac Cardiac: RRR, No murmur - Respiratory Respiratory: No respiratory distress, Clear bilaterally, Other (There is specific point tenderness to the left lower ribs anteriorly just lateral to the nipple line. 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, No motor deficit, No sensory deficit, Normal speech Eye Opening: Spontaneous Motor: Obeys Commands Verbal: Oriented GCS Score: 15 - Psych Psych: Normal mood, Normal affect Results - Vitals Vitals: Vital Signs - 24 hr 06/15/20 06/15/20 11:46 14:01 Temperature 36.5 C 36.8 C Heart Rate 98 74 Respiratory 20 16 Rate Blood Pressure 155/103 H 154/82 H O2 Saturation 96 100 Oxygen O2 Source Room air - Rads (name of study) chest Radiology: Prelim report reviewed (Impression: No acute cardiopulmonary pathology.), EMP read indepedently, See rad report PD MEDICAL DECISION MAKING - ED course Complexity details: reviewed results, re-evaluated patient, considered differential, d/w patient ED course: 69 y/o female with chest wall tenderness specific to a well localized area does not have a history of trauma to the area that she can recall. There are no skin changes to the area and x-ray is without obvious abnormality. She is diagnosed with chest wall pain, given a dose of decadron and toradal. Departure - Departure Disposition: 01 Home, Self Care Clinical Impression: Anterior chest wall pain Condition: Stable Instructions: ED Chest Pain Costochondritis Follow-Up: [facility] [Provider Group] Discharge Date/Time: 06/15/20 14:17
--- NOTE | 2020-06-15 13:38 | XRAY Report ---
PROCEDURE: Chest 2 View X-Ray INDICATIONS: tender L lateral to nipple line under breast TECHNIQUE: 2 view(s) of the chest. COMPARISON: None. FINDINGS: Surgical changes and devices: None. Lungs and pleura: No pleural effusions or pneumothorax. Lungs are clear. Mediastinum: Mediastinal contours are normal. Heart size is normal. Bones and chest wall: No suspicious bony abnormalities. Soft tissues appear unremarkable. IMPRESSION: No acute cardiopulmonary pathology. Reviewed by: Jann Martin MD on 06/15/2020 1:36 PM PDT Approved by: Jann Martin MD on 06/15/2020 1:36 PM PDT Station ID: [id number]
[2020-06-15] MEDS ORDERED: DEXAMETHASONE 10 MG/ML VIAL PO STA (13:50)
[2020-06-15] MEDS ORDERED: CHERRY SYRUP 10 ML UDC PO ONE (13:50)
[2020-06-15] MEDS ORDERED: KETOROLAC 60 MG/2 ML VIAL IM STA (13:50)
[2020-06-15 14:02] VITALS: BP 154/82
== END 2020-06-15 14:17 | disposition home or self-care (01) ==
LOC: ED 11:36
DX: R07.89 Other chest pain (principal)
CPT/HCPCS: 71046; 96372; 99283; A9270